=== PATIENT | female | born 1985 | race American Indian/Alaskan Native ===

== ENCOUNTER 2017-05-04 22:19 | Emergency (ER) | payer OTHER ==
[2017-05-04] MEDS ORDERED: CATAPRES ONE (22:47)
[2017-05-04] MEDS ORDERED: CATAPRES PO ONE (22:53)
[2017-05-04 23:18] LABS: Basophils % (Auto) 0.9 % (0.0-1.8); Hematocrit 28.9 % (30.3-42.9); Hemoglobin 9.3 gm/dl (10.1-14.3); Mean Corpuscular HGB Conc 32 % (30-34); Mean Corpuscular Hemoglobin 26 pg (28-32); Mean Corpuscular Volume 81 fl (79-97); Platelet Count 249 K/mm3 (140-440); Red Blood Count 3.58 M/mm3 (3.65-5.03); Red Cell Distribution Width 16.9 % (13.2-15.2); White Blood Count 9.9 K/mm3 (4.5-11.0)
[2017-05-04 23:37] LABS: Anion Gap 17 mmol/L; Blood Urea Nitrogen 7 mg/dL (7-17); Calcium 8.6 mg/dL (8.4-10.2); Carbon Dioxide 24 mmol/L (22-30); Chloride 99.9 mmol/L (98-107); Glucose 102 mg/dL (65-100); Potassium 3.1 mmol/L (3.6-5.0); Sodium 138 mmol/L (137-145)
--- NOTE | 2017-05-05 07:24 | XRay Report ---
ROUTINE CHEST, TWO VIEWS: HISTORY: chest pain. The trachea, heart, mediastinal contour, lung elliott and bony thorax are unremarkable. IMPRESSION: Unremarkable chest x-ray. No change since 11/10/15.
[2017-05-05] MEDS ORDERED: TORADOL IM ONE (07:53)
--- NOTE | 2017-05-05 10:40 | Emergency Department Report ---
HPI - General Chief Complaint: Chest Pain Time Seen by Provider: 05/05/17 06:14 - HPI HPI: The patient is a 31-year-old female presents for evaluation of chest pain. The patient reports chest pain since noon yesterday, greater than 18 hours prior to my evaluation, constant since onset, 7/10 in severity, tightness like in quality , exacerbated with movement of the upper by. The patient denies fever, trauma to the chest, neck pain, parasthesias, dyspnea, cough, hemoptysis, palpitations , dizziness, syncope, unilateral leg swelling, calf muscle pain, oral contraception use, cocaine or other stimulant use, history of DVT or PE, recent immobilization, or history of cancer/recent chemotherapy. ED Past Medical Hx - Past Medical History Previous Medical History?: Yes Hx Hypertension: Yes - Surgical History Past Surgical History?: Yes Hx Cholecystectomy: Yes Hx Appendectomy: Yes Additional Surgical History: x3, ubilical hernia repair - Social History Smoking Status: Never Smoker Substance Use Type: None - Medications Home Medications: Home Medications Medication Instructions Recorded Confirmed Last Taken Type HYDROcodone/APAP 5-325 [[place] 1 each PO Q6HR PRN #14 tablet 11/10/15 Unknown Rx 5/325] Ibuprofen [Motrin] 600 mg PO Q8H PRN #20 tablet 11/10/15 Unknown Rx Labetalol [Normodyne TAB] 100 mg PO BID #60 tablet 11/10/15 Unknown Rx amLODIPine [Norvasc] 5 mg PO DAILY #31 tab 05/05/17 Unknown Rx traMADol [Ultram 50 MG tab] 50 mg PO Q6HR PRN #14 tablet 05/05/17 Unknown Rx ED Review of Systems ROS: Stated complaint: CHEST PAIN/LOWER BACK PAIN Other details as noted in HPI Constitutional: denies: fever ENT: denies: throat or neck pain Respiratory: denies: cough, shortness of breath Cardiovascular: reports chest pain Endocrine: denies unexplained weight loss or gain Gastrointestinal: denies: abdominal pain, nausea Genitourinary: denies: dysuria Musculoskeletal: denies: leg swelling Skin: denies: rash Neurological: denies: headache Hematological/Lymphatic: denies: easy bleeding or easy bruising Psych: denies sadness or hopelessness Physical Exam - Physical Exam Vital Signs: Vital Signs 05/04/17 05/04/17 05/05/17 22:38 23:10 02:47 Temperature 98.7 F 98.3 F Pulse Rate 84 71 Respiratory 18 18 Rate Blood Pressure 174/125 175/124 113/84 Blood Pressure [Left] O2 Sat by Pulse 84 100 Oximetry 05/05/17 05/05/17 05/05/17 07:05 07:12 08:04 Temperature 98 F Pulse Rate 61 Respiratory 18 18 Rate Blood Pressure Blood Pressure 106/71 [Left] O2 Sat by Pulse 100 100 Oximetry Physical Exam: General: well-nourished, well-developed, no acute distress Head: Normocephalic, atraumatic Eyes: normal sclera ENT: Mucous membranes are pink and moist Neck: trachea midline, neck supple, No neck stiffness, no cervical adenopathy Respiratory: Breath sounds equal bilaterally, no wheezing, rales, or rhonchi Cardio: S1 and S2 present, no murmurs, rubs, gallops, capillary refill is brisk Abdomen: Normoactive bowel sounds, soft abdomen, no rigidity, no guarding or rebound tenderness Musc: No pitting edema Skin: No rash Neuro: no facial drooping, normal speech Psych: Normal affect ED Course Vital Signs 05/04/17 05/04/17 05/05/17 22:38 23:10 02:47 Temperature 98.7 F 98.3 F Pulse Rate 84 71 Respiratory 18 18 Rate Blood Pressure 174/125 175/124 113/84 Blood Pressure [Left] O2 Sat by Pulse 84 100 Oximetry 05/05/17 05/05/17 05/05/17 07:05 07:12 08:04 Temperature 98 F Pulse Rate 61 Respiratory 18 18 Rate Blood Pressure Blood Pressure 106/71 [Left] O2 Sat by Pulse 100 100 Oximetry ED Medical Decision Making - Lab Data Result diagrams: 05/04/17 23:06 05/04/17 23:06 - Medical Decision Making The patient was seen and examined by myself. The patient is placed on a youth nutritional monitor and continuous pulse ox. On initial evaluation, the patient was found to be in no distress. The patient is given IM Toradol for her pain and a tablet of clonidine for her elevated blood pressure. EKG was negative for findings suggestive of acute cardiac infarct. Labs and imaging are obtained. Chest x-ray is negative for pneumothorax, focal consolidation, pulmonary vascular congestion, pleural effusion, or other obvious acute cardiopulmonary disease process. Lab results were non-concerning including levels of troponin, WBC, hemoglobin, hematocrit, electrolytes, renal function. The patient was reevaluated and reported that their symptoms were markedly improved. As the patient has a RUBEN risk score less than 2, and a well's score less than 2, the patient is at low risk of ACS or pulmonary emboli etiology of their symptoms. The patient is stable for discharge with outpatient follow-up. The patient is given follow-up and return instructions. The patient expressed understanding and agreed with the plan. The patient is discharged in stable condition. Critical care attestation.: If time is entered above; I have spent that time in minutes in the direct care of this critically ill patient, excluding procedure time. ED Disposition Clinical Impression: Acute chest pain, Hypertension Disposition: DC-01 TO HOME OR SELFCARE Is pt being admited?: No Does the pt Need Aspirin: No Condition: Stable Instructions: Chest Pain (ED), Hypertension (ED) Referrals: PRIMARY CARE, [Primary Care Provider] - 3-5 Days Time of Disposition: 10:35
[2017-05-05 10:57] VITALS: BP 109/75
== END 2017-05-05 11:05 | disposition home or self-care (01) ==
LOC: ED 22:19
DX: I10 Essential (primary) hypertension (principal); R07.89 Other chest pain
CPT/HCPCS: 36415; 71020; 80048; 84484; 84703; 85025; 93005; 93010; 96372; 99284; J1885